=== PATIENT | male | born 2000 | race Caucasian/White ===

== ENCOUNTER 2022-01-01 06:14 | Emergency (ER) | payer BC, SELFPAY ==
[2022-01-01 06:15] VITALS: BP 126/81; PULSE 98; RESP 14; TEMP 36.8; O2SAT 95; BMI 17.9
--- NOTE | 2022-01-01 06:36 | RAD_ITS ---
EXAM: XR CHEST, 1 VIEW CLINICAL INDICATION: chest pain, syncope TECHNIQUE: Frontal view of the chest. 2 views, centered superiorly and inferiorly to include the apices and lateral costophrenic angles. Portable upright. This report was created using [employer] report generation technology. COMPARISON: None. FINDINGS: LUNGS AND PLEURAL SPACES: No infiltrate. No pneumothorax. No effusion. HEART: Unremarkable. Cardiac silhouette not enlarged. MEDIASTINUM: Central airways and mediastinal contour are unremarkable. BONES/JOINTS: Unremarkable. SOFT TISSUES: Unremarkable. RAD/Chest 1 View (Portable) IMPRESSION: No acute findings in the chest. Electronically Signed: Yudith Rao MD at 7:19 EDT ,
--- NOTE | 2022-01-01 06:37 | EKG12_ITS ---
Test Reason : sleepy Blood Pressure : / mmHG Vent. Rate : 098 BPM Atrial Rate : 098 BPM P-R Int : 132 ms QRS Dur : 084 ms QT Int : 336 ms P-R-T Axes : 034 093 012 degrees QTc Int : 428 ms Normal sinus rhythm Rightward axis Poor R wave progression Confirmed by CARLY GONZÁLES, CHAD ([id number]), newspaper photo editor ERIK SINGH ([id number]) on 01/03/2022 9:33:03 AM Referred By: Confirmed By:CHAD CARROLL MD
--- NOTE | 2022-01-01 06:38 | EDS_ITS ---
HPI <Dr. Vinicius Bee MD - Last Filed: 01/01/22 08:03> History of Present Illness Chief Complaint: Syncope Informant: patient and parent Narrative Narrative: Patient presenting after a syncopal episode this morning that occurred while he was urinating just after getting out of bed, and he has multiple other complaints. He states he has several food sensitivities and chronic intermittent diarrhea related to these. He does not have diarrhea every day, but in the past week he has, 2-3 times a day, loose, nonbloody nonmelanotic, and in addition has had chills, fatigue, myalgias/body aches, headaches, and intermittent chest tightness which he also gets chronically but more often in the past week. It is left-sided nonpleuritic last for 5 minutes or less, and is not associated with any other symptoms such as dyspnea, palpitations, near- syncope or syncope. He did not have the discomfort when he had a syncopal episode today. States he was actively urinating when he started feeling lightheaded and then passed out, falling to the floor, he thinks he hit his face on the nearby bathtub. He does not have significant facial pain, headache, nor vision changes right now. He denies any other injury. He denies any abdominal pain throughout all of this in the past week except for feeling lots of gurgling more than usual. No nausea or vomiting. No focal neurologic symptoms. Patient also states he went for a long bicycle ride almost a week ago with his father, he states he remembers feeling worse since then. [facility] <Dr. Vinicius Bee MD - Last Filed: 01/01/22 08:03> [facility] Medical History (Updated 01/01/22 @ 08:[address] Vinicius Bee MD) Food sensitivity with gastrointestinal symptoms Medical History no medical history Home Medications NK 01/01/22 [History Last Taken Unknown] Allergy/AdvReac Type Severity Reaction Status Date / Time No Known Allergies Allergy Verified 01/01/22 06:25 Surgical History no surgical history Social History Smoking Status: Never smoker ROS <Dr. Vinicius Bee MD - Last Filed: 01/01/22 08:03> ROS ED Constitutional Constitutional ED: Reports body ache(s), chills, fatigue, headache(s) and weakness; Denies fever(s) Eyes Eyes: Denies change in vision or diplopia ENT ENT ED: Denies rhinorrhea or sore throat Cardiovascular Cardiovascular: Reports as per HPI, chest pain and lightheadedness; Denies leg edema or palpitations Respiratory/Chest Respiratory/Chest: Denies cough or dyspnea Gastrointestinal Gastrointestinal: Reports diarrhea; Denies abdominal pain, hematemesis, hematochezia, melena, nausea or vomiting Genitourinary Genitourinary ED: Denies dysuria or hematuria Musculoskeletal Musculoskeletal: Reports myalgias; Denies arthralgias, back pain or neck pain Integumentary Denies abscess or rash Neurologic Neurologic: Reports headache(s); Denies paresthesias or weakness Psychiatric Psychiatric: Denies anxiety or suicidal thoughts EXAM <Dr. Vinicius Bee MD - Last Filed: 01/01/22 08:03> Physical Exam Const Vital Signs: 01/01/22 06:15 01/01/22 06:17 01/01/22 07:19 Temperature 98.3 F Temperature Source Oral Pulse Rate 98 97 Respiratory Rate 14 19 H Respiratory Effort Normal Non-Labored Respiratory Pattern Normal Blood Pressure 126/81 H 112/70 Blood Pressure Mean 96 84 Pulse Ox 95 96 Oxygen Delivery Method Room Air Room Air 01/01/22 09:10 Temperature Temperature Source Pulse Rate 88 Respiratory Rate 18 Respiratory Effort Respiratory Pattern Blood Pressure 119/81 H Blood Pressure Mean 93 Pulse Ox 96 Oxygen Delivery Method Room Air Positive well nourished and well developed General Appearance ED: well developed and NAD HEENT Reports moist mucous membranes HEENT Narrative: Small contusion right superior orbital brim without tenderness, right zygoma without tenderness. Midface stable, no bony tenderness. TMs normal without hemotympanum, although they are mostly occluded by cerumen bilaterally. No otorhinorrhea. Lips dry. normocephalic Eyes PERRL and EOMs intact bilaterally Neck full ROM, no lymphadenopathy and supple Chest Wall inspection of chest normal and palpation of chest normal Resp normal respiratory effort and clear to auscultation bilaterally Cardio regular rate, regular rhythm and no murmurs Rate: tachycardic GI non-tender and non-distended Auscultation: normoactive bowel sounds Palpation: soft Back/Spine no CVA tenderness General Back: other FROM Extremity normal to inspection General Extremety ED: Negative for edema, pulses abnormal or tenderness General Extremity: Negative for edema or pulses abnormal Neuro oriented x3, CN's II-XII intact bilaterally and no sensory deficits noted Sensorium / Orientation: awake and alert Motor Exam: strength 5/5 throughout Skin no rashes or lesions noted and no wounds <Dr. Yuan Holbrook DO - Last Filed: 01/01/22 09:14> Physical Exam Const Vital Signs: 01/01/22 06:15 01/01/22 06:17 01/01/22 07:19 Temperature 98.3 F Temperature Source Oral Pulse Rate 98 97 Respiratory Rate 14 19 H Respiratory Effort Normal Non-Labored Respiratory Pattern Normal Blood Pressure 126/81 H 112/70 Blood Pressure Mean 96 84 Pulse Ox 95 96 Oxygen Delivery Method Room Air Room Air 01/01/22 09:10 Temperature Temperature Source Pulse Rate 88 Respiratory Rate 18 Respiratory Effort Respiratory Pattern Blood Pressure 119/81 H Blood Pressure Mean 93 Pulse Ox 96 Oxygen Delivery Method Room Air MDM <Dr. Vinicius Bee MD - Last Filed: 01/01/22 08:03> [facility] MDM Narrative Medical decision making narrative: My suspicion is that this patient was either orthostatic due to some mild dehydration and getting up early in the morning before drinking fluids, or had vasovagal micturition syncope. He has had lots of constitutional symptoms in the past week in addition to the intermittent chest discomfort, increase in his chronic diarrhea, and then the syncopal episode today so I did obtain work-up including cardiac testing which was normal, and a D-dimer while he was being given IV fluids. From a head injury standpoint, he needs [place] head CT trauma criteria for observation does not require CT, he does not appear to have major injury to his head nor does he have symptoms of it. His lab testing show some interesting mild abnormalities such as a slightly elevated creatinine, fasting blood sugar of 132, sodium of 133. His CPK is within normal limits. I do not think he needs more emergent testing here today, we are still waiting for a D-dimer to come back in order to rule out thromboembolic disease as acute cause for any of the symptoms today, which he is at low risk for. I suspect he has a viral infection causing the majority of these symptoms, the chest discomfort was something he had had off-and-on prior to the development of most of the symptoms in addition to the diarrhea. I discussed with Dr. Vernon regarding these lab abnormalities, she recommends that after discharge, he called to make an appointment for follow-up in 5-6 days for reevaluation and further testing. I discussed that with them and he will follow-up. Mom states she wanted to anyway because he gets sick so often. Pt checked out to Dr. Summers for d-dimer results and CTA if abnormal; otherwise, pt to be discharged, he is feeling much better after a liter of IVF. Lab Data Attestation: I reviewed the patient's lab results. Labs: Laboratory Results - last 24 hr 01/01/22 01/01/22 01/01/22 06:45 06:45 06:45 WBC 7.5 RBC 5.40 Hgb 14.9 Hct 42.8 MCV 79.3 L MCH 27.6 MCHC 34.8 RDW Std Deviation 34.9 L RDW Coeff of Emily 12.3 Plt Count 149 L MPV 11.9 Immature Gran % (Auto) 0.300 Neut % (Auto) 76.6 H Lymph % (Auto) 13.8 L Dixon % (Auto) 8.4 Eos % (Auto) 0.0 Baso % (Auto) 0.9 Absolute Neuts (auto) 5.8 Absolute Lymphs (auto) 1.04 Nucleated RBC % 0 D-Dimer Quant (PE/DVT) 5.45 H* Sodium 133 L Potassium 3.8 Chloride 100 Carbon Dioxide 26.0 Anion Gap 7 BUN 12 Creatinine 1.33 H Estim Creat Clear Calc 74.06 Est GFR (MDRD) Af Amer 86 Est GFR (MDRD) Non-Af 71 BUN/Creatinine Ratio 9.0 L Glucose 132 H Calcium 8.8 Total Bilirubin 1.10 H AST 32 ALT 28 Alkaline Phosphatase 59 Total Creatine Kinase Troponin I High Sens 58 Total Protein 7.6 Albumin 4.1 Globulin 3.5 Albumin/Globulin Ratio 1.2 01/01/22 06:45 WBC RBC Hgb Hct MCV MCH MCHC RDW Std Deviation RDW Coeff of Emily Plt Count MPV Immature Gran % (Auto) Neut % (Auto) Lymph % (Auto) Dixon % (Auto) Eos % (Auto) Baso % (Auto) Absolute Neuts (auto) Absolute Lymphs (auto) Nucleated RBC % D-Dimer Quant (PE/DVT) Sodium Potassium Chloride Carbon Dioxide Anion Gap BUN Creatinine Estim Creat Clear Calc Est GFR (MDRD) Af Amer Est GFR (MDRD) Non-Af BUN/Creatinine Ratio Glucose Calcium Total Bilirubin AST ALT Alkaline Phosphatase Total Creatine Kinase 85 Troponin I High Sens Total Protein Albumin Globulin Albumin/Globulin Ratio Radiography Diagnostic Testing: Clinical Impression(s) from Imaging Studies Chest X-Ray 01/01/22 06:36 IMPRESSION: No acute findings in the chest. Electronically Signed: Yudith Rao MD at 7:19 EDT , Chest CTA 01/01/22 08:22 IMPRESSION: Normal CTA chest examination, without a demonstrated pulmonary embolism or arterial dissection. Electronically Signed: Norman Rodriguez MD at 9:07 EDT , Rhythm Strip Rhythm Strip: Sinus Tach Rate: 100 Ectopy: None EKG Initial EKG: Attestation: I personally reviewed and interpreted this EKG as follows: Interpretation: Sinus Rhythm and No Acute Injury Pattern Comments: normal EKG <Dr. Yuan Holbrook, DO - Last Filed: 01/01/22 09:14> [facility] MDM Narrative Medical decision making narrative: My suspicion is that this patient was either orthostatic due to some mild dehydration and getting up early in the morning before drinking fluids, or had vasovagal micturition syncope. He has had lots of constitutional symptoms in the past week in addition to the intermittent chest discomfort, increase in his chronic diarrhea, and then the syncopal episode today so I did obtain work-up in cluding cardiac testing which was normal, and a D-dimer while he was being given IV fluids. From a head injury standpoint, he needs [place] head CT trauma criteria for observation does not require CT, he does not appear to have major injury to his head nor does he have symptoms of it. His lab testing show some interesting mild abnormalities such as a slightly elevated creatinine, fasting blood sugar of 132, sodium of 133. His CPK is within normal limits. I do not think he needs more emergent testing here today, we are still waiting for a D-dimer to come back in order to rule out thromboem bolic disease as acute cause for any of the symptoms today, which he is at low risk for. I suspect he has a viral infection causing the majority of these symptoms, the chest discomfort was something he had had off-and-on prior to the development of most of the symptoms in addition to the diarrhea. I discussed with Dr. Vernon regarding these lab abnormalities, she recommends that after discharge, he called to make an appointment for follow-up in 5-6 days for reevaluation and further testing. I discussed that with them and he will follow-up. Mom states she wanted to anyway because he gets sick so often. Pt checked out to Dr. Holbrook for d-dimer results and CTA if abnormal; otherwise, pt to be discharged, he is feeling much better after a liter of IVF. Lab Data Labs: Laboratory Results - last 24 hr 01/01/22 01/01/22 01/01/22 06:45 06:45 06:45 WBC 7.5 RBC 5.40 Hgb 14.9 Hct 42.8 MCV 79.3 L MCH 27.6 MCHC 34.8 RDW Std Deviation 34.9 L RDW Coeff of Emily 12.3 Plt Count 149 L MPV 11.9 Immature Gran % (Auto) 0.300 Neut % (Auto) 76.6 H Lymph % (Auto) 13.8 L Dixon % (Auto) 8.4 Eos % (Auto) 0.0 Baso % (Auto) 0.9 Absolute Neuts (auto) 5.8 Absolute Lymphs (auto) 1.04 Nucleated RBC % 0 D-Dimer Quant (PE/DVT) 5.45 H* Sodium 133 L Potassium 3.8 Chloride 100 Carbon Dioxide 26.0 Anion Gap 7 BUN 12 Creatinine 1.33 H Estim Creat Clear Calc 74.06 Est GFR (MDRD) Af Amer 86 Est GFR (MDRD) Non-Af 71 BUN/Creatinine Ratio 9.0 L Glucose 132 H Calcium 8.8 Total Bilirubin 1.10 H AST 32 ALT 28 Alkaline Phosphatase 59 Total Creatine Kinase Troponin I High Sens 58 Total Protein 7.6 Albumin 4.1 Globulin 3.5 Albumin/Globulin Ratio 1.2 01/01/22 06:45 WBC RBC Hgb Hct MCV MCH MCHC RDW Std Deviation RDW Coeff of Emily Plt Count MPV Immature Gran % (Auto) Neut % (Auto) Lymph % (Auto) Dixon % (Auto) Eos % (Auto) Baso % (Auto) Absolute Neuts (auto) Absolute Lymphs (auto) Nucleated RBC % D-Dimer Quant (PE/DVT) Sodium Potassium Chloride Carbon Dioxide Anion Gap BUN Creatinine Estim Creat Clear Calc Est GFR (MDRD) Af Amer Est GFR (MDRD) Non-Af BUN/Creatinine Ratio Glucose Calcium Total Bilirubin AST ALT Alkaline Phosphatase Total Creatine Kinase 85 Troponin I High Sens Total Protein Albumin Globulin Albumin/Globulin Ratio Radiography Chest X-Ray - ED: 1 View, Read by ED Physician, Read by Radiologist, Normal and No Acute Disease Diagnostic Testing: Clinical Impression(s) from Imaging Studies Chest X-Ray 01/01/22 06:36 IMPRESSION: No acute findings in the chest. Electronically Signed: Yudith Rao MD at 7:19 EDT , Chest CTA 01/01/22 08:22 IMPRESSION: Normal CTA chest examination, without a demonstrated pulmonary embolism or arterial dissection. Electronically Signed: Norman Rodriguez MD at 9:07 EDT , Treatment and Re-Evaluation Narrative: Care of the patient was turned over to me. D-dimer came back elevated at 5.45. Because of this, CTA of the chest was obtained. CTA of the chest does not show any pulmonary embolism or aortic dissection. This was normal. This was interpreted by the radiologist and reviewed by myself. Patient and family were advised of the findings. Patient was instructed to follow-up with his primary care physician in 3 to 5 days. Patient and family understood and were agreeable with the plan. All questions were answered. Discharge Plan Triage Chief Complaint: Syncope ED Provider: Vinicius Bee Dx/Rx/DC Orders Clinical Impression: Micturition syncope, Acute viral syndrome, Fasting hyperglycemia, Creatinine elevation Instructions: Causes of Syncope, ED Viral Syndrome (Adult) Prescriptions: No Action NK Primary Care Provider: Nasreen Vernon Referrals: Nasreen Vernon MD [Primary Care Provider] - (Call to make an appointment for this coming Wednesday or Wednesday) Activity Restrictions/Additional Instructions: Drink plenty of fluids while you are not feeling well and having diarrhea Disposition Disposition: Home, Self Care
[2022-01-01] MEDS: 0.9% Normal Saline 1,000 ML 999 ML IV (06:48)
[2022-01-01 07:01] LABS: Absolute Lymphocyte Count 1.04 X10^3/uL (0.83-4.51); Absolute Neutrophil Count 5.8 X10^3/uL (2.0-7.7); Basophil# 0.07 X10^3/uL; Basophil% 0.9 % (0-1); Hematocrit 42.8 % (40-54); Hemoglobin 14.9 g/dL (13.0-16.5); Lymphocyte # 1.04 X10^3/ul (0.83-4.51); Lymphocyte % 13.8 % (19-41); Mean Corp Hgb Conc 34.8 g/dL (32-36); Mean Corpuscular Hgb 27.6 pg (27.0-32.0); Mean Corpuscular Volume 79.3 fL (80-94); Mean Platelet Vol. 11.9 fl (6.2-12.0); Monocyte# 0.63 X10^3/uL; Monocyte% 8.4 % (0-10); NRBC Flagged by Analyzer 0 % (0-5); Neutrophil # 5.77 X10^3/uL (2.7-7.7); Neutrophil % 76.6 % (47-70); Platelet Count 149 K/mm3 (150-450); RBC Distribution Width CV 12.3 % (11.6-14.6); RBC Distribution Width SD 34.9 fl (35.1-43.9); White Blood Count 7.5 K/mm3 (4.4-11.0)
[2022-01-01 07:18] LABS: ALB/GLOB Ratio 1.2 RATIO (0.9-2.4); AST(SGOT) 32 U/L (15-37); Alanine Aminotransfer ALT/SGPT 28 U/L (16-61); Albumin, Serum 4.1 g/dL (3.2-5.0); Alkaline Phosphatase 59 U/L (45-117); Anion Gap 7 (5-15); BUN 12 mg/dL (7-18); Calcium,Total 8.8 mg/dL (8.5-10.1); Chloride 100 mmol/L (98-107); Creatinine, Serum 1.33 mg/dL (0.70-1.30); EST Glomerular Filtration Rate 71 mL/min (>60); Est Glom Filt Rate - Afr Amer 86 mL/min (>60); Estimated Creatinine Clearance 74.06 ml/min; Globulin 3.5 g/dL (2.2-4.2); Glucose 132 mg/dL (74-106); Potassium 3.8 mmol/L (3.5-5.1); Protein, Total 7.6 g/dL (6.4-8.2); Sodium Level 133 mmol/L (136-145); Troponin-I HS 58 pg/mL (3.0-78.0)
[2022-01-01 07:19] VITALS: BP 112/70; PULSE 97; RESP 19; O2SAT 96
[2022-01-01 07:21] LABS: CPK Total, Creatine Kinase 85 U/L (39-308)
[2022-01-01 08:22] LABS: D-Dimer Quantitative (DVT/PE) 5.45 FEU/ug/m (0.27-0.49)
--- NOTE | 2022-01-01 08:22 | CT_ITS ---
STUDY: CTA CHEST REASON FOR EXAM: Male, 21 years old. Elevated D-dimer RADIATION DOSAGE (If Supplied By Facility): CTDIvol = ( 4.84 ) mGy, DLP = ( 193.06 ) mGycm TECHNIQUE: The examination was performed with the intravenous administration of IV 75mL Isovue-370. Post-processing of the angiographic images was performed, with multiplanar reformation and 3D reconstruction. Individualized dose optimization techniques were used for this CT. COMPARISON: Comparison is made with prior chest radiograph done earlier in the day. FINDINGS: Normal enhancement of the main pulmonary artery and right and left pulmonary arteries. Normal enhancement of the bilateral peripheral pulmonary arteries. There is no demonstrated pulmonary embolism. Normal thoracic aorta and visualized great vessels. There is no demonstrated aortic dissection. Normal heart and pericardium. Normal mediastinum. Normal hilar regions. Normal visualized trachea and bronchi. The lungs are well expanded. Normal pulmonary parenchyma. Normal pleura. Normal chest wall structures. Normal osseous structures. Normal visualized upper abdomen. CT/CTA Chest W/WO Contrast IMPRESSION: Normal CTA chest examination, without a demonstrated pulmonary embolism or arterial dissection. Electronically Signed: Norman Rodriguze MD at 9:07 EDT ,
[2022-01-01 09:10] VITALS: BP 119/81; PULSE 88; RESP 18; O2SAT 96
[2022-01-01 09:23] VITALS: BP 119/51; PULSE 87; RESP 16; O2SAT 97
== END 2022-01-01 09:23 | disposition home or self-care (01) ==
PROVIDERS: Emergency Provider Emergency Medicine; PCP Family Medicine; Visit Provider Emergency Medicine
DX: R55 Syncope and collapse (principal); B34.9 Viral infection, unspecified; R73.9 Hyperglycemia, unspecified
CPT/HCPCS: 71045; 71275; 80053; 82550; 84484; 85025; 85379; 87428; 93005; 99283; J7030; Q9967; A4216

== ENCOUNTER 2022-01-20 15:01 | Outpatient (RCR) | payer BC, SELFPAY | END 2022-01-25 23:59 | LOC: NS 15:01 | PROVIDERS: PCP Family Medicine | DX: Z71.3 Dietary counseling and surveillance (principal); E46 Unspecified protein-calorie malnutrition; Z68.1 Body mass index [BMI] 19.9 or less, adult | CPT/HCPCS: 97802 ==

== ENCOUNTER → 2022-01-30 | Outpatient (CLI) | payer BC, SELFPAY ==
[2022-01-30 15:26] LABS: ALB/GLOB Ratio 1.5 RATIO (0.9-2.4); AST(SGOT) 10 U/L (15-37); Alanine Aminotransfer ALT/SGPT 24 U/L (16-61); Albumin, Serum 4.7 g/dL (3.2-5.0); Alkaline Phosphatase 74 U/L (45-117); Anion Gap 8 (5-15); BUN 9 mg/dL (7-18); BUN/Creat Ratio 9.6 RATIO (10-20); Calcium,Total 9.3 mg/dL (8.5-10.1); Chloride 101 mmol/L (98-107); Creatinine, Serum 0.94 mg/dL (0.70-1.30); EST Glomerular Filtration Rate 106 mL/min (>60); Est Glom Filt Rate - Afr Amer 129 mL/min (>60); Globulin 3.1 g/dL (2.2-4.2); Glucose 84 mg/dL (74-106); Potassium 4.5 mmol/L (3.5-5.1); Protein, Total 7.8 g/dL (6.4-8.2); Sodium Level 139 mmol/L (136-145); Thyroid Stim Hormone (TSH) 1.38 uIU/mL (0.358-3.74)
== END | disposition home or self-care (01) ==
PROVIDERS: PCP Family Medicine; Referring Provider Family Medicine; Visit Provider Family Medicine
DX: E46 Unspecified protein-calorie malnutrition (principal); R79.9 Abnormal finding of blood chemistry, unspecified
CPT/HCPCS: 36415; 80053; 84443

== ENCOUNTER 2023-11-26 21:52 | Emergency (ER) | payer BC, SELFPAY ==
[2023-11-26] VITALS (7 sets, daily range): BP systolic 125–142; BP diastolic 71–81; PULSE 68–88; RESP 13–18; TEMP 36.2–37; O2SAT 98; BMI 18.8
--- NOTE | 2023-11-26 22:06 | EKG12_ITS ---
Test Reason : CP Blood Pressure : / mmHG Vent. Rate : 093 BPM Atrial Rate : 093 BPM P-R Int : 116 ms QRS Dur : 088 ms QT Int : 362 ms P-R-T Axes : 000 089 122 degrees QTc Int : 450 ms Normal sinus rhythm Cannot rule out Inferior infarct , age undetermined Abnormal ECG Confirmed by POWER GONZÁLES, BARBARA ([id number]), editor sound DAYANNA VAN ([id number]) on 11/29/2023 6:49:41 AM Referred By: Confirmed By:BARBARA STEVE MD
--- NOTE | 2023-11-26 22:07 | ED.VIS.CHEST ---
HPI History of Present Illness Chief Complaint: Chest Pain Informant: patient and parent Narrative Narrative: 23-year-old male presenting to the emergency department with a chief complaint of chest pain and syncope. Patient states for the past couple days he has been experiencing chest pain and left arm pain. States it is intermittent in nature. He describes it as sometimes sharp and stabbing sometimes burning sometimes aching. He states he has been worried about that recently. He notes he is sensitive distress. Denied he states he ran around the yard as a way of relaxing. An hour and a half later he was experiencing his symptoms and had a panic attack. He states he felt really lightheaded and had a syncopal episode for a few seconds. Patient states he has no known medical problems. He notes some nausea over the past couple weeks. He has been taking herbal supplementation but cannot remember everything he has been taking. He states he is taking them out of curiosity for health. He does not have a primary care doctor. No prior surgeries. No DVT PE risk factors. No family history of aortic dissection or aneurysm. Non-smoker. [facility] Medical History Food sensitivity with gastrointestinal symptoms Home Medications ?Medication ?Instructions ?Recorded ?Last Taken ?Type NK 01/01/22 Unknown History Allergy/AdvReac Type Severity Reaction Status Date / Time cashew nut (cashews) Allergy Rash Verified 11/26/23 21:53 wheat AdvReac Abd Verified 11/26/23 21:53 cramps/diarrhea Social History Smoking Status: Never smoker ROS [facility] ED Constitutional Constitutional ED: Denies chills, fever(s) or weight loss Eyes Eyes: Denies change in vision or diplopia ENT ENT ED: Denies ear pain, rhinorrhea or sore throat Cardiovascular Cardiovascular: Reports chest pain, racing heartbeat and other Details: Syncope ; Denies orthopnea or palpitations Respiratory/Chest Respiratory/Chest: Denies cough, dyspnea or orthopnea Gastrointestinal Gastrointestinal: Reports nausea; Denies abdominal pain, diarrhea or vomiting Genitourinary Genitourinary ED: Denies dysuria, hematuria or urinary frequency Musculoskeletal Musculoskeletal: Denies arthralgias, back pain or myalgias Integumentary Denies abscess or rash Neurologic Neurologic: Denies headache(s) or weakness Psychiatric Psychiatric: Denies anxiety, depression, suicidal ideation or suicidal thoughts Endocrine Endocrinology: Denies polydipsia, polyphagia or polyuria Allergic/Immunologic Allergic/Immunologic ED: Denies mouth swelling, tongue swelling or urticaria EXAM Physical Exam Const Vital Signs: 11/26/23 21:52 11/26/23 22:06 11/26/23 22:06 Temperature 97.1 F L Temperature Source Temporal Pulse Rate 88 Pulse Rate [Lying] 74 Pulse Rate [Sitting (for 1 minute prior to obtaining)] 78 Pulse Rate [Standing (for 1 minute prior to obtaining)] 77 Respiratory Rate 17 Respiratory Effort Normal Non-Labored Blood Pressure 142/78 H Blood Pressure [Lying] 130/71 H Blood Pressure [Sitting (for 1 minute prior to obtaining)] 125/71 H Blood Pressure [Standing (for 1 minute prior to obtaining)] 130/78 H Blood Pressure Mean 99 Blood Pressure Mean [Lying] 90 Blood Pressure Mean [Sitting (for 1 minute prior to obtaining)] 89 Blood Pressure Mean [Standing (for 1 minute prior to obtaining)] 95 Pulse Ox 98 Oxygen Delivery Method Room Air Positive well nourished and well developed General Appearance ED: well developed and NAD HEENT Reports normocephalic, head/scalp atraumatic and moist mucous membranes Eyes PERRL and EOMs intact bilaterally Neck no lymphadenopathy, supple and no JVD Resp normal respiratory effort and clear to auscultation bilaterally Cardio regular rate, regular rhythm and no murmurs GI normal to inspection, nondistended, normoactive bowel sounds and non-tender Palpation: soft Back/Spine no CVA tenderness and normal ROM Extremity normal to inspection General Extremety ED: Negative for edema General Extremity: Negative for edema Neuro oriented x3 and CN's II-XII intact bilaterally Sensorium / Orientation: alert Motor Exam: strength 5/5 throughout Psych mental status grossly normal Mood & Affect: anxious; Negative for depressed or tearful Skin no rashes or lesions noted and no wounds MDM MDM MDM Narrative Medical decision making narrative: Differential diagnosis includes but not limited to panic attack vasovagal syncope ACS pneumothorax aortic dissection pulmonary embolism dehydration anemia electrolyte abnormalities primary cardiac dysrhythmia. Orthostatics are normal. White count 9.1 with a hemoglobin of 15.1 platelet count 239. My independent interpretation of the chest x-ray is no acute process. Normal mediastinal silhouette. Patient has had no events on the monitor. Creatinine 1.35. Potassium 3.4. Blood sugars noted to be elevated at 160. Hemoglobin A1c was added. D-dimer is normal. ED evaluation was discussed at the bedside with the patient and his mother. This point I am not seeing an obvious cause for the patient's syncope. Certainly stress may play a role. I have asked that he follow-up with primary care especially in light of his elevated blood sugar. If new or worsening symptoms patient should return to the emergency department. At this point I am not seeing evidence of ACS dysrhythmia dehydration aortic dissection pulmonary embolism pneumothorax History & Record Review Discussion w/independent historian: Patient and Family Lab Data Attestation: I reviewed the patient's lab results. Labs: Laboratory Results - last 24 hr 11/26/23 22:04 WBC 9.1 RBC 5.47 Hgb 15.1 Hct 45.6 MCV 83.4 MCH 27.6 MCHC 33.1 RDW Std Deviation 35.6 RDW Coeff of Emily 11.8 Plt Count 239 MPV 11.8 Immature Gran % (Auto) 0.300 Neut % (Auto) 66.1 Lymph % (Auto) 24.6 [place] % (Auto) 5.8 Eos % (Auto) 2.6 Baso % (Auto) 0.6 Absolute Neuts (auto) 6.0 Absolute Lymphs (auto) 2.23 Nucleated RBC % 0 D-Dimer Quant (PE/DVT) < 0.27 L Sodium 138 Potassium 3.4 L Chloride 102 Carbon Dioxide 27.0 Anion Gap 9 BUN 12 Creatinine 1.35 H Estim Creat Clear Calc 75.19 Est GFR (MDRD) Af Amer 83 Est GFR (MDRD) Non-Af 69 BUN/Creatinine Ratio 8.9 L Glucose 160 H Calcium 9.1 Total Bilirubin 1.00 AST 13 L ALT 21 Alkaline Phosphatase 78 Troponin I High Sens 10 Total Protein 7.9 Albumin 4.6 Globulin 3.3 Albumin/Globulin Ratio 1.4 Lipase 22 EKG Initial EKG: Attestation: I personally reviewed and interpreted this EKG as follows: Comments: Normal sinus rhythm ventricular rate of [address] segments. No evidence of preexcitation. No prolonged QT syndrome. Discharge Plan Triage Chief Complaint: Chest Pain ED Provider: Haider Elizalde Dx/Rx/DC Orders Clinical Impression: Chest pain, Syncope Instructions: Diagnosing Syncope Prescriptions: No Action NK Primary Care Provider: Care Physician,No Primary Referrals: Care Physician,No Primary [Primary Care Provider] - Activity Restrictions/Additional Instructions: As discussed would be a good idea to follow-up with primary care. You may certainly see Dr. Loyola. I would recommend stress reduction. As mentioned her blood sugar was elevated tonight to be 160. I have added on a hemoglobin A1c. I would recommend that you have this rechecked. If new worsening or concerns please return to emergency. Print Language: Vincentian Disposition Disposition: Home, Self Care
--- NOTE | 2023-11-26 22:16 | RAD_ITS ---
EXAM: XR CHEST, 1 VIEW CLINICAL INDICATION: syncope chest pain TECHNIQUE: Frontal view of the chest. COMPARISON: January 01, 2022. FINDINGS: LUNGS AND PLEURAL SPACES: Unremarkable. No consolidation or edema. No pneumothorax. No effusion. HEART: Unremarkable. Cardiac silhouette not enlarged. MEDIASTINUM: Central airways and mediastinal contour are unremarkable. BONES/JOINTS: Unremarkable. No acute fracture. SOFT TISSUES: Unremarkable. RAD/Chest 1 View (Portable) IMPRESSION: No radiographic evidence of acute cardiopulmonary disease. Electronically Signed: Zack Renee MD at 23:50 EDT ,
[2023-11-26 22:25] LABS: Absolute Lymphocyte Count 2.23 X10^3/uL (0.83-4.51); Basophil# 0.05 X10^3/uL; Basophil% 0.6 % (0-1); Eosinophil# 0.24 X10^3/uL; Eosinophils% 2.6 % (0-5); Hematocrit 45.6 % (40-54); Hemoglobin 15.1 g/dL (13.0-16.5); Lymphocyte # 2.23 X10^3/ul (0.83-4.51); Lymphocyte % 24.6 % (19-41); Mean Corp Hgb Conc 33.1 g/dL (32-36); Mean Corpuscular Hgb 27.6 pg (27.0-32.0); Mean Corpuscular Volume 83.4 fL (80-94); Mean Platelet Vol. 11.8 fl (6.2-12.0); Monocyte# 0.53 X10^3/uL; Monocyte% 5.8 % (0-10); NRBC Flagged by Analyzer 0 % (0-5); Neutrophil # 5.98 X10^3/uL (2.7-7.7); Neutrophil % 66.1 % (47-70); Platelet Count 239 K/mm3 (150-450); RBC Distribution Width CV 11.8 % (11.6-14.6); RBC Distribution Width SD 35.6 fl (35.1-43.9); Red Blood Count 5.47 M/mm3 (4.6-6.2); White Blood Count 9.1 K/mm3 (4.4-11.0)
[2023-11-26 22:47] LABS: ALB/GLOB Ratio 1.4 RATIO (0.9-2.4); AST(SGOT) 13 U/L (15-37); Alanine Aminotransfer ALT/SGPT 21 U/L (16-61); Albumin, Serum 4.6 g/dL (3.2-5.0); Alkaline Phosphatase 78 U/L (45-117); Anion Gap 9 (5-15); BUN 12 mg/dL (7-18); BUN/Creat Ratio 8.9 RATIO (10-20); Calcium,Total 9.1 mg/dL (8.5-10.1); Chloride 102 mmol/L (98-107); Creatinine, Serum 1.35 mg/dL (0.70-1.30); EST Glomerular Filtration Rate 69 mL/min (>60); Est Glom Filt Rate - Afr Amer 83 mL/min (>60); Estimated Creatinine Clearance 75.19 ml/min; Globulin 3.3 g/dL (2.2-4.2); Glucose 160 mg/dL (74-106); Lipase 22 U/L (13-75); Potassium 3.4 mmol/L (3.5-5.1); Protein, Total 7.9 g/dL (6.4-8.2); Sodium Level 138 mmol/L (136-145); Troponin-I HS 10 pg/mL (3.0-78.0)
[2023-11-26 22:53] LABS: D-Dimer Quantitative (DVT/PE) < 0.27 FEU/ug/m (0.27-0.49)
[2023-11-26 23:17] LABS: Hemoglobin A1c 4.8 % (3.8-5.6)
== END 2023-11-26 23:14 | disposition home or self-care (01) ==
PROVIDERS: Emergency Provider Emergency Medicine; Visit Provider Emergency Medicine
DX: R07.9 Chest pain, unspecified (principal); R55 Syncope and collapse
CPT/HCPCS: 71045; 80053; 83036; 83690; 84484; 85025; 85379; 93005; 99284; A4216

== ENCOUNTER 2024-09-28 06:01 | Emergency (ER) | payer BC, SELFPAY ==
[2024-09-28 06:01] VITALS: BP 112/93; PULSE 82; RESP 19; TEMP 36.7; O2SAT 100; BMI 20.1
[2024-09-28 06:05] VITALS: BP 112/93; PULSE 72; RESP 18; TEMP 36.7; O2SAT 100
--- NOTE | 2024-09-28 06:25 | RAD_ITS ---
PROCEDURE: CHEST PA AND LATERAL 09/28/2024 REASON FOR EXAM: COUGH TECHNIQUE: Frontal and lateral views of the chest. COMPARISON: 11/26/2023 FINDINGS: The lungs are clear. Pulmonary vascularity appears within limits. No pneumothorax or pleural effusion. The cardiac and mediastinal contours appear within limits. The visualized osseous structures appear within limits. RAD/Chest PA and Lateral IMPRESSION: No evidence of acute disease. Reading Location: [id number]
--- NOTE | 2024-09-28 06:37 | EDS_ITS ---
HPI History of Present Illness Chief Complaint: Chest Other Informant: patient Narrative Narrative: Patient is a 24-year-old male with no significant past medical history. He states that he has had 2 to 3 weeks of congestion and cough. He reports that he feels his congestion and cough are improving but in the last few days has noticed right sided chest pain that is worse with coughing. He states a member of his christianity recently had a collapsed lung. He states that with the pain he is now experiencing he has concern for that. He denies any previous history of pneumothorax. He denies any history of asthma COPD emphysema smoking or vaping. However with the persistent cough and now increasing pain he presents for evaluation [facility] Medical History Food sensitivity with gastrointestinal symptoms Home Medications ?Medication ?Instructions ?Recorded ?Last Taken ?Type azithromycin 250 mg tablet See Rx Instructions PO .COM PLEX #6 09/28/24 Unknown Rx (Zithromax Z-Stanley) tabs Allergy/AdvReac Type Severity Reaction Status Date / Time cashew nut (cashews) Allergy Rash Verified 09/28/24 06:03 wheat AdvReac Abd Verified 09/28/24 06:03 cramps/diarrhea Social History Smoking Status: Never smoker ROS [facility] ED Constitutional Constitutional ED: Denies chills or fever(s) Eyes Eyes: Denies blurry vision or change in vision ENT ENT ED: Reports rhinorrhea; Denies sore throat Cardiovascular Cardiovascular: Reports chest pain; Denies palpitations or racing heartbeat Respiratory/Chest Respiratory/Chest: Reports cough; Denies dyspnea Gastrointestinal Gastrointestinal: Denies abdominal pain, diarrhea, nausea or vomiting Musculoskeletal Musculoskeletal: Denies myalgias Integumentary Denies rash Neurologic Neurologic: Denies headache(s) Hematologic/Lymphatic Hematologic/Lymphatic: Denies easy bleeding or easy bruising EXAM Physical Exam Const Vital Signs: 09/28/24 06:01 09/28/24 06:05 Temperature 98.1 F 98.1 F Temperature Source Oral Oral Pulse Rate 82 72 Respiratory Rate 19 H 18 Blood Pressure 112/93 H 112/93 H Blood Pressure Mean 99 99 Pulse Ox 100 100 Oxygen Delivery Method Room Air Room Air Positive well nourished and well developed General Appearance ED: well developed; Negative for pallor HEENT HEENT Narrative: No tongue or lip swelling no oral no airway edema or compromise. Cobblestoning is noted in the posterior pharynx consistent with sinus drainage without secondary changes to suggest infection Eyes PERRL and EOMs intact bilaterally General Eye ED: Negative for scleral icterus Neck supple Neck Narrative: No nuchal rigidity or meningeal signs noted Chest Wall Chest Narrative: No bony deformity or crepitance Resp normal respiratory effort and clear to auscultation bilaterally Resp Narrative: There is faint rhonchi noted in the right sided chest No nasal flaring retractions tachypnea or accessory muscle use Cardio regular rate and regular rhythm Rate: other Other Details: Regular rate and rhythm without murmurs rubs or gallop Radial and carotid pulses are equal and symmetric No carotid bruit noted Extremity normal to inspection Extremity Narrative: No asymmetric edema no pitting edema negative Homans' sign bilaterally Neuro oriented x3, CN's II-XII intact bilaterally and no sensory deficits noted Sensorium / Orientation: alert Motor Exam: strength 5/5 throughout Psych mental status grossly normal Skin no rashes or lesions noted and no wounds General Skin Exam: Negative for jaundice or pallor MDM MDM MDM Narrative Medical decision making narrative: Patient arrived to the ER with stable vitals and in no acute distress. He reported 2 to 3 weeks of cough with the last 5 to 7 days of right sided chest discomfort. There is concern for pneumonia versus bronchitis versus rib fracture versus pneumothorax. The patient is PERC negative and therefore I have low concern for DVT/PE. Also he is low risk for cardiovascular disease and denies any illicit drug use or family history of cardiac disease at a young age so do not feel a cardiac workup is necessary. A chest x-ray will be obtained to rule out pneumonia or pneumothorax or rib fracture. The x-ray shows questionable developing infiltrate in the right middle lobe which does correlate with his area pain. As he is not showing physical exam findings for sepsis as he is not in respiratory distress or requiring supplemental oxygen do not feel there is need for further workup or evaluation in the ER and he be given symptomatic medication and is otherwise safe for discharge. History & Record Review Discussion w/independent historian: Patient Radiography Diagnostic Testing: Clinical Impression(s) from Imaging Studies Chest X-Ray 09/28/24 06:25 IMPRESSION: No evidence of acute disease. Reading Location: [facility] 2 view chest x-ray as interpreted by the emergency medicine physician reveals no acute rib fracture or pneumothorax but there is haziness in the right middle and upper lobe concerning for developing pneumonia Discharge Plan Triage Chief Complaint: Chest Other ED Provider: Zack Saldana Dx/Rx/DC Orders Clinical Impression: Bronchitis, Acute nonspecific chest pain with low risk of coronary artery disease Instructions: Acute Bronchitis Prescriptions: New azithromycin [Zithromax Z-Stanley] 250 mg tablet See Rx Instructions .ROUTE .COMPLEX Qty: 6 0RF Rx Instructions: For 250 mg dose pack: take 500 mg today (day 1), then 250 mg for 4 days (days 2-5) Primary Care Provider: Care Physician,No Primary Referrals: Butch Carmona MD [Med Staff - Active Staff] - Care Physician,No Primary [Primary Care Provider] - Activity Restrictions/Additional Instructions: Please follow-up with your family doctor or Dr. Carmona for repeat evaluation. Your x-ray did not show a rib fracture or a collapsed lung. It does show haziness consistent with bronchitis. With concern for developing pneumonia please take the antibiotic as directed. Continue with Tylenol and/or Motrin for pain control. Return to the ER should you have any further concerns Print Language: Kosovan Disposition Disposition: Home, Self Care
[2024-09-28] MEDS: Azithromycin 250 MG Tablet 500 MG PO (07:15)
[2024-09-28 07:16] VITALS: BP 144/82; PULSE 87; RESP 17; TEMP 36.6; O2SAT 99
== END 2024-09-28 07:17 | disposition home or self-care (01) ==
PROVIDERS: Emergency Provider Emergency Medicine; Visit Provider Emergency Medicine
DX: J20.9 Acute bronchitis, unspecified (principal); R07.89 Other chest pain
CPT/HCPCS: 71046; 99282